=== PATIENT | female | born 1965 | race Caucasian/White ===

== ENCOUNTER 2017-02-09 04:55 | Day surgery (SDC) | payer OTHER ==
[2017-02-08 10:27] VITALS: BMI 24.7
[2017-02-09] MEDS ORDERED: ROPIVACAINE HCL 0.5% 30ML VIAL ONE (13:22)
[2017-02-09] MEDS ORDERED: MIDAZOLAM HCL 2 MG/2 ML SINGLE DOSE VIAL ONE ×2 (13:23)
--- NOTE | 2017-02-09 13:46 | HP ---
Satellite H - Chief Complaint Chief Complaint: right wrist fx - Past Medical History Allergies/Adverse Reactions: Allergies Allergy/AdvReac Type Severity Reaction Status Date / Time oxycodone HCl [From Percocet] Allergy "HEADACHE Verified 02/09/17 13:30 AND FELT WEIRD" ...LMP Comment: 5 YRS AGO - Current Medications Current Medications: Home Medications Medication Instructions Recorded Aspirin [ASA -] 81 mg PO DAILY 08/08/14 Cholecalciferol (Vitamin D3) 1,000 unit PO ASDIR 08/08/14 [Vitamin D3] Hematite-3 Fatty Acids [Fish Oil] 300 mg PO HS 08/08/14 Paroxetine HCl [Paxil] 20 mg PO DAILY 08/08/14 Pitavastatin Calcium [Livalo] 2 mg PO HS 02/08/17 Raloxifene HCl [Evista (Nf) -] 60 mg PO DAILY 02/08/17 Ubidecarenone/Vit E Acetate [Co 2 each PO HS 02/08/17 Q-10 100 mg Softgel] Hydrocodone/Acetaminophen [Vicodin 1 each PO Q6H PRN #50 tablet MDD 6 02/09/17 5-300 mg Tablet] Satellite Physical Exam - Physical Examination Vital Signs: Vital Signs Period Temp Pulse Resp BP Sys/Wetzel Pulse Ox Last 24 Hr 98.2 F 88 20 107/78 98 General Appearance: Well Nourished, Well Developed, Alert & Oriented x3 ENT: Clear Lung: Normal air movement Heart: Regular rate & rhythm Extremities: Other (right wrist- splint intact, + swelling, + ttp ,decr rom, nvi xrays show displaced distal radius fx) Neurological: Intact, Alert, Oriented Satellite Impression/Plan - Impression/Plan Impression: right distal radius fx Operative Procedure: right distal radius orif Date to be Performed: 02/09/17
[2017-02-09] MEDS ORDERED: LIDOCAINE HCL/PF 2% SDV 5ML VIAL ONE (14:36)
[2017-02-09] MEDS ORDERED: ceFAZolin SODIUM 1 GM VIAL ONE (14:36)
[2017-02-09] MEDS ORDERED: LIDOCAINE HCL 1%, 10 MG/ML (20ML VIAL) ONE (14:36)
[2017-02-09] MEDS ORDERED: BUPIVACAINE HCL/PF 0.5% (5MG/ML) 10 ML VIAL ONE (14:36)
[2017-02-09] MEDS ORDERED: PROPOFOL 20 ML ONE (14:36)
[2017-02-09] MEDS ORDERED: ceFAZolin SODIUM 1 GM VIAL IVPB ONE (14:45)
[2017-02-09] MEDS ORDERED: DEXAMETHASONE SOD PHOSPHATE 4 MG/1 ML VIAL ONE (15:00)
[2017-02-09] MEDS ORDERED: LIDOCAINE HCL 1%, 10 MG/ML (20ML VIAL) NR ONE (15:01)
[2017-02-09] MEDS ORDERED: BUPIVACAINE HCL/PF 0.5% (5MG/ML) 10 ML VIAL IJ ONE (15:01)
[2017-02-09] MEDS ORDERED: ACETAMINOPHEN 500 MG TABLET (FP) PO PRN (15:13)
[2017-02-09] MEDS ORDERED: ONDANSETRON 4 MG/2 ML VIAL IVPUSH PRN (15:13)
[2017-02-09] MEDS ORDERED: LACTATED RINGERS SOLUTION 1,000 ML IV SCH (15:15)
[2017-02-09] MEDS ORDERED: KETOROLAC TROMETHAMINE 30 MG/1 ML VIAL ONE (15:34)
--- NOTE | 2017-02-09 15:59 | OP ---
Operative Note - Note: Operative Date: 02/09/17 ([facility]) Pre-Operative Diagnosis: right distal radius fx Operation: right distal radius orif Post-Operative Diagnosis: Same as Pre-op Surgeon: Arnulfo Smith Motor Tester: Rock Martin Anesthesiologist/PLUGGER WORKER: Stella Calixto Anesthesia: General, Local Estimated Blood Loss (mls): 0 (tourniquet) Operative Report Dictated: Yes
--- NOTE | 2017-02-09 16:40 | SPEC ---
DATE OF OPERATION: 02/09/2017 PREOPERATIVE DIAGNOSIS: Right distal radius comminuted, intraarticular fracture. POSTOPERATIVE DIAGNOSIS: Right distal radius comminuted, intraarticular fracture. PROCEDURE: Right distal radius open reduction and internal fixation. SURGEON: Jackeline Lawrence MD [employer] PROFESSOR: THIAGO Wagner ANESTHESIA: Stella Calixto MD; LMA anesthesia, local injection of 10 mL 0.50% Marcaine and 1% lidocaine mix. DRAINS: None. COMPLICATIONS: None. SPECIMEN: None. FLUID REPLACEMENT: 500 mL BLOOD LOSS: None. BLOOD GIVEN: None. INDICATION FOR PROCEDURE: This patient is a 51-year-old female with preoperative diagnosis of comminuted, intraarticular, displaced, right distal radius fracture. After understanding the potential risks, complications, alternatives, and benefits of surgery versus nonsurgical treatment, the patient elected to undergo this procedure. DESCRIPTION OF PROCEDURE: The entire case was done under 3.8 loupe magnification. Typical FCR approach was marked out with a marking pen and incision made with No. 15 scalpel blade. Subcutaneous hemostasis was achieved with a bipolar cautery. The radial artery was retracted gently in a radial direction and ulnar to this, using a fresh No. 15 scalpel blade, the muscular fascia was incised. Blunt dissection was done with my index finger down to the volar aspect of the distal radius. Weitlaner retractors were placed deep into the wound for visualization. A periosteal elevator was used to do subperiosteal dissection exposing the fracture site. There was a main transverse component to the distal radius fracture but in addition there were several pieces, some extending towards the radial carpal joint and some towards the distal radial ulnar joint. The fracture site was copiously irrigated and washed out. All debris including hematoma and muscle were removed. A provisional reduction was performed and seemed to come together quite nicely. There was a small metaphyseal defect. X-rays were taken in A-P and lateral planes documenting excellent position of the fracture fragments, restoring radial height inclination and volar tilt. Next a standard [employer] left volar low profile DVR plate was placed on the volar aspect of the distal radius. Two K-wires were placed and x-rays were taken documenting excellent position, length and subchondral position. I used 4 proximal purple screws, 2.5 mm in diameter, all 10 mm in length and 5 distal screws all partially threaded, locking, 20 mm in length. X-rays again were taken documenting excellent position and support of the subchondral bone. All of the guides were removed and passed off the field. Final x-rays were taken in A-P and lateral planes. I was quite happy with the fracture reduction position, position of the radial carpal joint, distal radial ulnar joint length, height and tilt. Total tourniquet time was 45 minutes. There were no complications during the case; so, it all went quite well. JACKELINE LAWRENCE M.D. [id number]
[2017-02-09 18:03] VITALS: TEMP 98.7
[2017-02-09 18:05] VITALS: BP 131/82; PULSE 92
== END 2017-02-09 18:12 | disposition home or self-care (01) ==
LOC: JASU-SURG 04:55
PROVIDERS: ATTEND Orthopaedic Surgery
PROC: 0PSH04Z Reposition Right Radius with Internal Fixation Device, Open Approach (ICD-10-PCS; principal; 2017-02-09 14:30)
DX: S52.571A Other intraarticular fracture of lower end of right radius, initial encounter for closed fracture (principal); X58.XXXA Exposure to other specified factors, initial encounter; Y93.9 Activity, unspecified; Y92.9 Unspecified place or not applicable; Y99.9 Unspecified external cause status
CPT/HCPCS: 76000-TC; 94760

== ENCOUNTER 2021-03-07 22:00 | Emergency (ER) | payer OTHER ==
[2021-03-07 22:05] VITALS: BP 108/67; PULSE 84; TEMP 98; BMI 22.4
[2021-03-07] MEDS ORDERED: DIPHTH,PERTUSS(ACELL),TET 0.5 ML DISP.SYRIN IM ONE (23:01)
== END 2021-03-08 01:28 | disposition home or self-care (01) ==
LOC: JER 22:00
PROC: 0JQ10ZZ Repair Face Subcutaneous Tissue and Fascia, Open Approach (ICD-10-PCS; principal; 2021-03-07)
PROC: 3E0234Z Introduction of Serum, Toxoid and Vaccine into Muscle, Percutaneous Approach (ICD-10-PCS; 2021-03-07)
DX: S01.81XA Laceration without foreign body of other part of head, initial encounter (principal); W19.XXXA Unspecified fall, initial encounter; Y92.9 Unspecified place or not applicable
CPT/HCPCS: 70450-TC; 99284-25